=== PATIENT | male | born 2000 | race Caucasian/White ===

== ENCOUNTER 2019-01-11 09:46 | Emergency (ER) | payer MEDICAID ==
[~2019-01-11] VITALS: Ht 177.8 cm; Wt 87.5 kg
[2019-01-11 10:13] VITALS: BP 127/75; Ht 177.8 cm; Wt 87.5 kg
[2019-01-11 12:19] LABS: C REACTIVE PROTEIN 1.3 mg/dL (<=0.9); CALCIUM 9.4 mg/dL (8.5-10.1); CARBON DIOXIDE 29.9 mmol/L (21-32); CHLORIDE SERUM 102 mmol/L (98-107); CREATININE SERUM 0.6 mg/dL (0.7-1.3); GFR1 > 60 mL/min; GLUCOSE SERUM 92 mg/dL (74-106); POTASSIUM SERUM 4.2 mmol/L (3.5-5.1); SODIUM SERUM 139 mmol/L (136-145)
[2019-01-11 12:24] LABS: RED CELL DISTRIBUTION WIDTH 13.4 % (11.5-14.5)
[2019-01-11 12:25] LABS: BASOPHIL % 0 % (0-2); PLATELET COUNT 231 x10^3mcL (130-400)
[2019-01-11 13:49] LABS: ERYTHROCYTE SED RATE 6 mm/hr (0-15)
== END 2019-01-11 12:56 | disposition home or self-care (01) ==
LOC: ED 09:46
PROVIDERS: Emergency Medicine
DX: R21 Rash and other nonspecific skin eruption (principal); F17.210 Nicotine dependence, cigarettes, uncomplicated
CPT/HCPCS: 36415; J1200; J7512

== ENCOUNTER 2019-01-14 09:30 | Emergency (ER) | payer MEDICAID ==
[~2019-01-14] VITALS: Ht 180.3 cm; Wt 90.4 kg
[2019-01-14 09:52] VITALS: BP 136/61; Ht 180.3 cm; Wt 90.4 kg
== END 2019-01-14 11:27 | disposition home or self-care (01) ==
LOC: ED 09:30
DX: L30.9 Dermatitis, unspecified (principal)

== ENCOUNTER 2020-05-15 20:42 | Emergency (ER) | payer SELFPAY ==
[~2020-05-15] VITALS: Ht 177.8 cm; Wt 90.0 kg
[2020-05-15 20:53] VITALS: Ht 177.8 cm; Wt 90.0 kg
[2020-05-15 22:21] VITALS: BP 131/88
== END 2020-05-15 22:21 | disposition home or self-care (01) ==
LOC: ED 20:42
DX: R59.0 Localized enlarged lymph nodes (principal); F17.210 Nicotine dependence, cigarettes, uncomplicated; Z71.6 Tobacco abuse counseling
CPT/HCPCS: 87491; 87591; 99406

== ENCOUNTER 2020-06-09 00:21 | Emergency (ER) | payer SELFPAY ==
[~2020-06-09] VITALS: Ht 180.3 cm; Wt 91.6 kg
[2020-06-09 00:29] VITALS: Ht 180.3 cm; Wt 91.6 kg
[2020-06-09 02:12] VITALS: BP 106/50
== END 2020-06-09 02:12 | disposition home or self-care (01) ==
LOC: ED 00:21
DX: F15.10 Other stimulant abuse, uncomplicated (principal); R00.2 Palpitations

== ENCOUNTER 2020-06-24 22:49 | Emergency (ER) | payer MEDICAID ==
[~2020-06-24] VITALS: Ht 180.3 cm; Wt 94.8 kg
[2020-06-24 22:59] VITALS: Ht 180.3 cm; Wt 94.8 kg
[2020-06-25 01:34] VITALS: BP 124/62
== END 2020-06-25 01:35 | disposition home or self-care (01) ==
LOC: ED 22:49
DX: F15.10 Other stimulant abuse, uncomplicated (principal); F17.210 Nicotine dependence, cigarettes, uncomplicated; F19.10 Other psychoactive substance abuse, uncomplicated
CPT/HCPCS: G0480; Q0162